=== PATIENT | male | born 1940 | race Caucasian/White ===

== ENCOUNTER → 2019-03-15 | Outpatient (CLI) | payer MEDICARE, OTHER ==
[2019-03-15 15:31] LABS: INR 2.85; PROTHROMBIN TIME 29.8 SECONDS (11.8-14.0)
== END ==
LOC: M WUC 11:46
DX: Z79.01 Long term (current) use of anticoagulants (principal)

== ENCOUNTER → 2020-02-28 | Outpatient (CLI) | payer MEDICARE, BC, OTHER ==
[2020-02-28 10:38] LABS: INR 2.36; PROTHROMBIN TIME 25.6 SECONDS (11.8-14.0)
== END ==
LOC: M LAB 09:49
DX: Z51.81 Encounter for therapeutic drug level monitoring (principal); Z79.01 Long term (current) use of anticoagulants

== ENCOUNTER → 2020-03-14 | Outpatient (CLI) | payer MEDICARE, BC, OTHER ==
[2020-03-14 11:46] LABS: INR 2.53; PROTHROMBIN TIME 27.1 SECONDS (11.8-14.0)
== END ==
LOC: M LAB 10:57
PROVIDERS: ATTEND Family Medicine
DX: Z79.01 Long term (current) use of anticoagulants (principal)

== ENCOUNTER → 2020-04-05 | Outpatient (CLI) | payer MEDICARE, BC, OTHER ==
[2020-04-05 11:17] LABS: INR 2.93; PROTHROMBIN TIME 30.5 SECONDS (11.8-14.0)
== END ==
LOC: M LAB 10:17
PROVIDERS: ATTEND Family Medicine
DX: Z79.01 Long term (current) use of anticoagulants (principal)

== ENCOUNTER → 2021-04-09 | Outpatient (CLI) | payer MEDICARE, BC, OTHER ==
[2021-04-09 13:41] LABS: INR 2.2; PROTHROMBIN TIME 24.9 SECONDS (12.5-14.3)
== END ==
LOC: M LAB 12:47
PROVIDERS: ATTEND Physician Assistant
DX: I48.19 Other persistent atrial fibrillation (principal); Z79.01 Long term (current) use of anticoagulants